=== PATIENT | female | born 1990 | race Caucasian/White ===

== ENCOUNTER 2017-02-24 11:59 | Emergency (ER) | payer MEDICAID ==
[2017-02-24 12:10] VITALS: BP 146/102
--- NOTE | 2017-02-24 12:30 | ER Document Report ---
ED General - General Chief Complaint: Vaginal Bleeding Stated Complaint: VAGINAL BLEEDING Time Seen by Provider: 02/24/17 12:18 Mode of Arrival: Ambulatory Information source: Patient Notes: 26-year-old female presents with complaints of vaginal bleeding. Patient notes she is having clots since last night. Patient's. Ended normally last week. She denies any fevers or chills TRAVEL OUTSIDE OF THE [place] IN LAST 30 DAYS: No - HPI Onset: Yesterday Onset/Duration: Sudden Quality of pain: No pain Severity: Mild Pain Level: Denies Associated symptoms: Other Exacerbated by: Denies Relieved by: Denies Similar symptoms previously: No Recently seen / treated by doctor: No - Related Data Allergies/Adverse Reactions: oxycodone Allergy (Verified 02/24/17 12:09) Past Medical History - Social History Smoking Status: Never Smoker Cigarette use (# per day): No Chew tobacco use (# tins/day): No Smoking Education Provided: No Family History: Reviewed & Not Pertinent Renal/ Medical History: Denies: Hx Peritoneal Dialysis Review of Systems - Review of Systems Notes: REVIEW OF SYSTEMS: CONSTITUTIONAL : Denies fever, chills, or sweats. Denies recent illness. EENT: Denies eye, ear, throat, or mouth pain or symptoms. Denies nasal or sinus congestion or discharge. Denies throat, tongue, or mouth swelling or difficulty swallowing. CARDIOVASCULAR: Denies chest pain. Denies palpitations or racing or irregular heart beat. Denies ankle edema. RESPIRATORY: Denies cough, cold, or chest congestion. Denies shortness of breath, difficulty breathing, or wheezing. GASTROINTESTINAL: Denies abdominal pain or distention. Denies nausea, vomiting , or diarrhea. Denies blood in vomitus, stools, or per rectum. Denies black, tarry stools. Denies constipation. GENITOURINARY: Denies difficulty urinating, painful urination, burning, frequency, blood in urine, or discharge. FEMALE GENITOURINARY: Admits to vaginal bleeding MUSCULOSKELETAL: Denies back or neck pain or stiffness. Denies joint pain or swelling. SKIN: Denies rash, lesions or sores. HEMATOLOGIC : Denies easy bruising or bleeding. LYMPHATIC: Denies swollen, enlarged glands. NEUROLOGICAL: Denies confusion or altered mental status. Denies passing out or loss of consciousness. Denies dizziness or lightheadedness. Denies headache. Denies weakness or paralysis or loss of use of either side. Denies problems with gait or speech. Denies sensory loss, numbness, or tingling. Denies seizures. PSYCHIATRIC: Denies anxiety or stress. Denies depression, suicidal ideation, or homicidal ideation. ALL OTHER SYSTEMS REVIEWED AND NEGATIVE. PHYSICAL EXAMINATION: GENERAL: Well-appearing, well-nourished and in no acute distress. HEAD: Atraumatic, normocephalic. EYES: Pupils equal round and reactive to light, extraocular movements intact, conjunctiva are normal. ENT: Nares patent, oropharynx clear without exudates. Moist mucous membranes. NECK: Normal range of motion, supple without lymphadenopathy LUNGS: Breath sounds clear to auscultation bilaterally and equal. No wheezes rales or rhonchi. HEART: Regular rate and rhythm without murmurs ABDOMEN: Soft, nontender, nondistended abdomen. No guarding, no rebound. No masses appreciated. Female : deferred Musculoskeletal: Normal range of motion, no pitting or edema. No cyanosis. NEUROLOGICAL: Cranial nerves grossly intact. Normal speech, normal gait. Normal sensory, motor exams PSYCH: Normal mood, normal affect. SKIN: Warm, Dry, normal turgor, no rashes or lesions noted. Dictation was performed using [employer] voice recognition software Physical Exam - Vital signs Vitals: Temp Pulse Resp BP Pulse Ox 98.5 F 81 16 146/102 H 98 02/24/17 12:09 02/24/17 12:09 02/24/17 12:09 02/24/17 12:09 02/24/17 12:09 Course - Re-evaluation Re-evalutation: 02/24/17 12:29 Labwork pending at this time otherwise patient looks extremely well is in no distress 02/24/17 14:25 Labwork notes no significant abnormality. Patient otherwise is in no distress. She will be discharged home with close follow-up at this time After performing a Medical Screening Examination, I estimate there is LOW risk for ACUTE APPENDICITIS, BOWEL OBSTRUCTION, ACUTE CHOLECYSTITIS, PERFORATED DIVERTICULITIS, INCARCERATED HERNIA, PANCREATITIS, PELVIC INFLAMMATORY DISEASE, PERFORATED ULCER, ECTOPIC , or TUBO-OVARIAN ABSCESS, thus I consider the discharge disposition reasonable. Also, there is no evidence or peritonitis , sepsis, or toxicity. I have reevaluated this patient multiple times and no significant life threatening changes are noted. The patient and I have discussed the diagnosis and risks, and we agree with discharging home with close follow-up with the understanding that symptoms and presentations can change. We also discussed returning to the Emergency Department immediately if new or worsening symptoms occur. We have discussed the symptoms which are most concerning (e.g., bloody stool, fever, changing or worsening pain, vomiting) that necessitate immediate return. - Vital Signs Vital signs: Temp Pulse Resp BP Pulse Ox 98.5 F 81 16 146/102 H 98 02/24/17 12:09 02/24/17 12:09 02/24/17 12:09 02/24/17 12:09 02/24/17 12:09 - Laboratory Result Diagrams: 02/24/17 12:58 02/24/17 12:58 Laboratory results interpreted by me: 02/24/17 12:54 Urine Blood SMALL H Discharge - Discharge Clinical Impression: Dysfunctional uterine bleeding Condition: Stable Disposition: HOME, SELF-CARE Instructions: Dysfunctional Uterine Bleeding ([facility]) Referrals: [facility] [Provider Group] - Follow up tomorrow
[2017-02-24 13:27] LABS: ABSOLUTE EOSINOPHILS # (AUTO) 0.1 10^3/uL (0.0-0.6); ABSOLUTE LYMPHOCYTES (AUTO) 1.6 10^3/uL (0.5-4.7); ABSOLUTE MONOCYTES (AUTO) 0.5 10^3/uL (0.1-1.4); ABSOLUTE NEUT (AUTO) 5.9 10^3/uL (1.7-8.2); BASOPHILS % (AUTO) 0.4 % (0-2); EOSINOPHILS % (AUTO) 1.3 % (0-6); HEMATOCRIT 41.1 % (36.0-47.0); HGB HCT DIFFERENCE 0.9; LYMPHOCYTES % (AUTO) 19.4 % (13-45); MEAN CORPUSCULAR HEMOGLOBIN 30.3 pg (27.0-33.4); MEAN CORPUSCULAR HGB CONC 34.2 g/dL (32.0-36.0); MEAN CORPUSCULAR VOLUME 89 fl (80-97); MONOCYTES % (AUTO) 6.3 % (3-13); RED BLOOD COUNT 4.64 10^6/uL (3.72-5.28); RED CELL DISTRIBUTION WIDTH 13.2 % (11.5-14.0); SEGMENTED NEUTROPHILS % (AUTO) 72.6 % (42-78); WHITE BLOOD COUNT 8.1 10^3/uL (4.0-10.5)
[2017-02-24 13:36] LABS: APPEARANCE,URINE CLEAR; BILIRUBIN,URINE NEGATIVE (NEGATIVE); GLUCOSE, URINE NEGATIVE (NEGATIVE); KETONES,URINE NEGATIVE (NEGATIVE); LEUKOCYTE ESTERASE,URINE NEGATIVE (NEGATIVE); NITRITE,URINE NEGATIVE (NEGATIVE); PROTEIN,URINE NEGATIVE (NEGATIVE); URINE SPECIFIC GRAVITY 1.009; UROBILINOGEN,URINE NEGATIVE mg/dL (<2.0)
[2017-02-24 13:43] LABS: ALANINE AMINOTRANSFERASE 31 U/L (9-52); ALBUMIN 4.5 g/dL (3.5-5.0); ALKALINE PHOSPHATASE 57 U/L (38-126); ANION GAP 10 (5-19); ASPARTATE AMINO TRANSFERASE 23 U/L (14-36); BILIRUBIN,DIRECT 0.3 mg/dL (0.0-0.4); BILIRUBIN,TOTAL 0.5 mg/dL (0.2-1.3); BLOOD UREA NITROGEN 10 mg/dL (7-20); CARBON DIOXIDE 26 mmol/L (22-30); CHLORIDE 105 mmol/L (98-107); CREATININE RESULT 0.61 mg/dL (0.52-1.25); GLUCOSE 94 mg/dL (75-110); POTASSIUM 4.4 mmol/L (3.6-5.0); SODIUM 140.8 mmol/L (137-145); TOTAL PROTEIN 7.5 g/dL (6.3-8.2)
== END 2017-02-24 14:29 | disposition home or self-care (01) ==
LOC: ER 11:59
DX: N93.8 Other specified abnormal uterine and vaginal bleeding (principal)
CPT/HCPCS: 36415; 80053; 81001; 84443; 84703; 85025; 99284

== ENCOUNTER 2017-06-01 14:11 | Emergency (ER) | payer MEDICAID ==
[2017-06-01 14:17] VITALS: BP 146/93
--- NOTE | 2017-06-01 15:02 | ER Document Report ---
HPI - HPI Patient complains to provider of: Lesion near vagina Pain Level: 0 Context: Patient is a 26-year-old female presents to the ED complaining of a bump in her vagina. She states that she is unable to see a patient able to feel it. Denies any tenderness, burning, pain. She states that she had an ex-boyfriend who she last had intercourse with over a year ago she thought had a history of herpes. She denies any previous outbreaks or previous diagnosis of herpes otherwise denies any vaginal pain, discharge, pelvic pain. - DERM Skin Color: Normal Past Medical History - Social History Smoking Status: Never Smoker Chew tobacco use (# tins/day): No Frequency of alcohol use: Rare Drug Abuse: None Family History: Reviewed & Not Pertinent Patient has suicidal ideation: No Patient has homicidal ideation: No Renal/ Medical History: Denies: Hx Peritoneal Dialysis Vertical Provider Document - CONSTITUTIONAL Agree With Documented VS: Yes Notes: PHYSICAL EXAM GENERAL: Alert, interacts well. ABDOMEN: Soft, nondistended, nontender. No guarding, rebound, or rigidity.. Bowel sounds present in all 4 quadrants. FEMALE : Normal external exam. No evidence of lesions, lacerations, bruising or vesicles. No evidence of vaginal discharge with odor. No evidence of lesions. PSYCH: Normal affect, normal mood. SKIN: Warm, dry, normal turgor. No rashes or lesions noted. - INFECTION CONTROL TRAVEL OUTSIDE OF THE [place] IN LAST 30 DAYS: No - RESPIRATORY O2 Sat by Pulse Oximetry: 100 Course - Re-evaluation Re-evalutation: 06/01/17 19:22 Normal physical exam benign history. Discussed with patient to follow-up with [facility] but there is no evidence of abscess, cellulitis, ingrown hair, vesicles or chancroid. Patient is stable for discharge home - Vital Signs Vital signs: Temp Pulse Resp BP Pulse Ox 97.9 F 67 14 146/93 H 100 06/01/17 14:15 06/01/17 14:15 06/01/17 14:15 06/01/17 14:15 06/01/17 14:15 Discharge - Discharge Clinical Impression: STD exposure Condition: Good Disposition: HOME, SELF-CARE Additional Instructions: Your complaint today is not consistent with a herpes outbreak Please follow up with your primary care doctor or OBGYN as needed Referrals: DONNA GEORGE MD [COMMUNITY BASED STAFF] - Follow up as needed MELY GUILLEN DO [PAGE MAKEUP SYSTEM OPERATOR] - Follow up as needed (OBGYN)
== END 2017-06-01 15:10 | disposition home or self-care (01) ==
LOC: ER 14:11
DX: Z20.2 Contact with and (suspected) exposure to infections with a predominantly sexual mode of transmission (principal)
CPT/HCPCS: 99283

== ENCOUNTER 2017-06-24 21:04 | Emergency (ER) | payer MEDICAID ==
[2017-06-24 21:38] VITALS: BP 135/86
[2017-06-24] MEDS ORDERED: ACETAMINOPHEN 325 MG TABLET PO ONE (21:41)
--- NOTE | 2017-06-25 00:08 | ER Document Report ---
HPI - HPI Patient complains to provider of: sore throat, rash Pain Level: 5 Context: Patient is a 26-year-old female comes emergency department for chief complaint of 3 days of sore throat. She also states she has a rash on her face she wants checked out. 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 She denies fever, cough, shortness of breath, headache. She is also states she missed her period and she is worried she is . She denies any daily medications or medical problems. - EENT EENT: REPORTS: Sore Throat Past Medical History - General Information source: Patient - Social History Smoking Status: Never Smoker Frequency of alcohol use: None Drug Abuse: None Lives with: Family Family History: Reviewed & Not Pertinent Patient has suicidal ideation: No Patient has homicidal ideation: No - Medical History Medical History: Negative Renal/ Medical History: Denies: Hx Peritoneal Dialysis Surgical Hx: Negative - Immunizations Hx Diphtheria, Pertussis, Tetanus Vaccination: Yes Vertical Provider Document - CONSTITUTIONAL General Appearance: WD/WN, No Apparent Distress - INFECTION CONTROL TRAVEL OUTSIDE OF THE [place] IN LAST 30 DAYS: No - HEENT HEENT: Atraumatic, Normocephalic. negative: Conjuctival Injection, Dental Injury, Normal ENT Exam - Patient has mild tonsillar hypertrophy with erythema and also erythema over the soft palate. No uvular edema or airway compromise. No evidence of abscess., Tympanic Membrane Red, Tympanic Membrane Bulging - NECK Neck: Other - Mild anterior cervical adenopathy bilaterally - RESPIRATORY Respiratory: Breath Sounds Normal, No Respiratory Distress O2 Sat by Pulse Oximetry: 99 - CARDIOVASCULAR Cardiovascular: Regular Rate, Regular Rhythm - GI/ABDOMEN Gastrointestinal: Abdomen Soft, Abdomen Non-Tender - MUSCULOSKELETAL/EXTREMETIES Musculoskeletal/Extremeties: MAEW, FROM, Non-Tender - NEURO Motor/Sensory: No Motor Deficit, No Sensory Deficit - DERM Integumentary: Rash - There is a small area on the left upper lip just above the vermilion border which has a irritated, erythematous, crusted appearance. No vesicles, bulla, induration, fluctuance, or pustules Course - Re-evaluation Re-evalutation: Rash is not itchy or painful. Examination is most suggestive of mild impetigo. Given Bactroban for this. Patient strep test is negative. No concerning abnormalities on examination suggesting abscess or other concerning pathology. Suspect this is viral. Given dexamethasone. Discussed follow-up instructions and return precautions. Patient states understanding and agreement. - Vital Signs Vital signs: Temp Pulse Resp BP Pulse Ox 98.6 F 86 18 135/86 H 99 06/24/17 21:31 06/24/17 21:31 06/24/17 21:31 06/24/17 21:31 06/24/17 21:31 Discharge - Discharge Clinical Impression: Skin infection Pharyngitis Qualifiers: Pharyngitis/tonsillitis etiology: unspecified etiology Qualified Code(s): J02.9 - Acute pharyngitis, unspecified Condition: Stable Disposition: HOME, SELF-CARE Additional Instructions: The rash on your face is suggestive of bacterial infection. Use the mupirocin ointment as prescribed. Your strep test is negative. This is most likely viral in nature. Your test is negative. Take ibuprofen or Tylenol for pain of your throat, drink plenty of fluids. You have been treated for throat inflammation. We have a culture growing in our lab. Follow-up with primary care. Return to emergency department for any concerning worsening symptoms including difficulty breathing, spiking fever, severe swelling or pain of the throat or neck, or any other concerning symptoms. Prescriptions: Mupirocin [Bactroban 2% Ointment 22 gm] 1 applic TP TID #1 tube Forms: Return to Work
[2017-06-25] MEDS ORDERED: DEXAMETHASONE SOD PHOS INJ 10 MG/1 ML VIAL IM ONE (00:50)
== END 2017-06-25 00:57 | disposition home or self-care (01) ==
LOC: ER 21:04
DX: L08.9 Local infection of the skin and subcutaneous tissue, unspecified (principal); J02.9 Acute pharyngitis, unspecified
CPT/HCPCS: 99283; 96372; 87070; 87880; 81025; J3490; J1100

== ENCOUNTER → 2017-06-27 | Outpatient (CLI) | payer MEDICAID ==
[2017-06-27 12:49] LABS: ABSOLUTE BASOPHILS # (AUTO) 0.1 10^3/uL (0.0-0.2); ABSOLUTE EOSINOPHILS # (AUTO) 0.1 10^3/uL (0.0-0.6); ABSOLUTE LYMPHOCYTES (AUTO) 1.9 10^3/uL (0.5-4.7); ABSOLUTE MONOCYTES (AUTO) 0.8 10^3/uL (0.1-1.4); BASOPHILS % (AUTO) 0.8 % (0-2); EOSINOPHILS % (AUTO) 1.4 % (0-6); HEMATOCRIT 39.7 % (36.0-47.0); HEMOGLOBIN 13.4 g/dL (12.0-15.5); HGB HCT DIFFERENCE 0.5; MEAN CORPUSCULAR HEMOGLOBIN 29.4 pg (27.0-33.4); MEAN CORPUSCULAR HGB CONC 33.8 g/dL (32.0-36.0); MEAN CORPUSCULAR VOLUME 87 fl (80-97); RED BLOOD COUNT 4.57 10^6/uL (3.72-5.28); RED CELL DISTRIBUTION WIDTH 14.2 % (11.5-14.0); SEGMENTED NEUTROPHILS % (AUTO) 58.8 % (42-78); WHITE BLOOD COUNT 6.9 10^3/uL (4.0-10.5)
== END ==
LOC: OD 11:55
PROVIDERS: ATTEND Pediatrics
DX: J02.9 Acute pharyngitis, unspecified (principal)
CPT/HCPCS: 36415; 85025; 86140; 86308

== ENCOUNTER 2017-06-29 10:18 | Emergency (ER) | payer MEDICAID ==
[2017-06-29 10:23] VITALS: BP 140/88
--- NOTE | 2017-06-29 10:40 | ER Document Report ---
ED General - General Chief Complaint: Swelling Stated Complaint: THROAT SWELLING/SKIN PROBLEM Time Seen by Provider: 06/29/17 10:35 Mode of Arrival: Ambulatory Information source: Patient TRAVEL OUTSIDE OF THE [place] IN LAST 30 DAYS: No - HPI Patient complains to provider of: sore throat; lesions on skin Onset: Other - Pt. states she has had ulcers around her nose and in the back of her throat for the past 8 days. States she wsa seen here for same a got a steroid shot - Related Data Allergies/Adverse Reactions: oxycodone Allergy (Verified 06/29/17 10:19) Home Medications: Current Home Medications Sertraline HCl [Zoloft] 200 mg PO DAILY 06/29/17 [History] Past Medical History - Social History Smoking Status: Never Smoker Chew tobacco use (# tins/day): No Frequency of alcohol use: Rare Drug Abuse: None Family History: Reviewed & Not Pertinent Patient has suicidal ideation: No Patient has homicidal ideation: No Renal/ Medical History: Denies: Hx Peritoneal Dialysis - Immunizations Hx Diphtheria, Pertussis, Tetanus Vaccination: Yes Review of Systems - Review of Systems Constitutional: No symptoms reported EENT: Throat pain Cardiovascular: No symptoms reported Respiratory: No symptoms reported Gastrointestinal: No symptoms reported Genitourinary: See HPI, Burning, Dysuria Skin: See HPI, Lesions -: Yes All other systems reviewed and negative Physical Exam - Vital signs Vitals: Temp Pulse Resp BP Pulse Ox 98.5 F 78 17 140/88 H 99 06/29/17 10:22 06/29/17 10:22 06/29/17 10:22 06/29/17 10:22 06/29/17 10:22 - General General appearance: Appears well In distress: None - HEENT Head: Normocephalic Pharynx: Other - there are scattered ulcers in the posterior pharynx with some surrounding erythema. There is no tonsillar hypertrophy - Respiratory Respiratory status: No respiratory distress Breath sounds: Normal - Cardiovascular Rhythm: Regular Heart sounds: Normal auscultation - Skin Character of irregularity: Other - there are scattered ulcers with some minimal surrounding erythema just superior to the upper lip and around the nares bilaterally. There is no ocular involvement Course - Vital Signs Vital signs: Temp Pulse Resp BP Pulse Ox 98.5 F 78 17 140/88 H 99 06/29/17 10:22 06/29/17 10:22 06/29/17 10:22 06/29/17 10:22 06/29/17 10:22
[2017-06-29] MEDS ORDERED: IBUPROFEN 800 MG TABLET PO ONE (10:58)
[2017-06-29 11:12] LABS: APPEARANCE,URINE CLOUDY; BILIRUBIN,URINE NEGATIVE (NEGATIVE); COLOR,URINE YELLOW; GLUCOSE, URINE NEGATIVE (NEGATIVE); KETONES,URINE NEGATIVE (NEGATIVE); LEUKOCYTE ESTERASE,URINE LARGE (NEGATIVE); NITRITE,URINE NEGATIVE (NEGATIVE); PROTEIN,URINE NEGATIVE (NEGATIVE); URINE SPECIFIC GRAVITY 1.013; UROBILINOGEN,URINE NEGATIVE mg/dL (<2.0)
== END 2017-06-29 11:37 | disposition home or self-care (01) ==
LOC: ER 10:18
DX: Z33.1 Pregnant state, incidental (principal); R22.1 Localized swelling, mass and lump, neck; L98.9 Disorder of the skin and subcutaneous tissue, unspecified; Z79.899 Other long term (current) drug therapy
CPT/HCPCS: 99283; 81025; 81001; J3490

== ENCOUNTER 2017-07-14 13:45 | Emergency (ER) | payer MEDICAID ==
[2017-07-14] MEDS ORDERED: MECLIZINE HCL 25 MG TABLET PO ONE (15:44)
[2017-07-14 15:50] LABS: AMORPHOUS SEDIMENT,URINE TRACE /HPF; APPEARANCE,URINE SLIGHTLY-CLOUDY; BILIRUBIN,URINE NEGATIVE (NEGATIVE); GLUCOSE, URINE NEGATIVE (NEGATIVE); KETONES,URINE NEGATIVE (NEGATIVE); LEUKOCYTE ESTERASE,URINE NEGATIVE (NEGATIVE); NITRITE,URINE NEGATIVE (NEGATIVE); PROTEIN,URINE NEGATIVE (NEGATIVE); URINE SPECIFIC GRAVITY 1.017; UROBILINOGEN,URINE NEGATIVE mg/dL (<2.0)
[2017-07-14 16:00] LABS: ABSOLUTE BASOPHILS # (AUTO) 0.1 10^3/uL (0.0-0.2); ABSOLUTE EOSINOPHILS # (AUTO) 0.2 10^3/uL (0.0-0.6); ABSOLUTE LYMPHOCYTES (AUTO) 2.1 10^3/uL (0.5-4.7); ABSOLUTE MONOCYTES (AUTO) 0.6 10^3/uL (0.1-1.4); ABSOLUTE NEUT (AUTO) 4.2 10^3/uL (1.7-8.2); BASOPHILS % (AUTO) 0.7 % (0-2); EOSINOPHILS % (AUTO) 3.1 % (0-6); HEMATOCRIT 42.4 % (36.0-47.0); HEMOGLOBIN 14.3 g/dL (12.0-15.5); HGB HCT DIFFERENCE 0.5; LYMPHOCYTES % (AUTO) 28.8 % (13-45); MEAN CORPUSCULAR HEMOGLOBIN 29.2 pg (27.0-33.4); MEAN CORPUSCULAR HGB CONC 33.9 g/dL (32.0-36.0); MEAN CORPUSCULAR VOLUME 86 fl (80-97); MONOCYTES % (AUTO) 8.3 % (3-13); RED BLOOD COUNT 4.91 10^6/uL (3.72-5.28); RED CELL DISTRIBUTION WIDTH 14.1 % (11.5-14.0); SEGMENTED NEUTROPHILS % (AUTO) 59.1 % (42-78); WHITE BLOOD COUNT 7.2 10^3/uL (4.0-10.5)
[2017-07-14 16:19] LABS: ALANINE AMINOTRANSFERASE 38 U/L (9-52); ALBUMIN 4.5 g/dL (3.5-5.0); ALKALINE PHOSPHATASE 58 U/L (38-126); ANION GAP 12 (5-19); ASPARTATE AMINO TRANSFERASE 26 U/L (14-36); BILIRUBIN,DIRECT 0.1 mg/dL (0.0-0.4); BILIRUBIN,TOTAL 0.2 mg/dL (0.2-1.3); BLOOD UREA NITROGEN 9 mg/dL (7-20); CALCIUM 9.9 mg/dL (8.4-10.2); CARBON DIOXIDE 30 mmol/L (22-30); CHLORIDE 104 mmol/L (98-107); CREATININE RESULT 0.54 mg/dL (0.52-1.25); GLUCOSE 96 mg/dL (75-110); POTASSIUM 4.4 mmol/L (3.6-5.0); SODIUM 145.8 mmol/L (137-145); TOTAL PROTEIN 7.1 g/dL (6.3-8.2)
[2017-07-14 16:36] LABS: FREE T3 4.34 pg/mL (2.77-5.27)
--- NOTE | 2017-07-14 16:48 | ER Document Report ---
ED General - General Chief Complaint: General Weakness Stated Complaint: SHAKY, WEAK FEELING Time Seen by Provider: 07/14/17 15:22 Mode of Arrival: Ambulatory Information source: Patient Notes: 26-year-old female presents with complaints of lightheadedness sensation and feeling like she did not pass out. Patient notes symptoms worsen when she stands up all of a sudden. She denies any chest pain shortness of breath difficulty breathing nausea vomiting or diarrhea TRAVEL OUTSIDE OF THE [place] IN LAST 30 DAYS: No - HPI Onset: Other - 3 4 day duration Onset/Duration: Intermittent Quality of pain: No pain Severity: Mild Pain Level: Denies Associated symptoms: Other - Lightheadedness dizziness Exacerbated by: Standing Relieved by: Denies Similar symptoms previously: No Recently seen / treated by doctor: No - Related Data Allergies/Adverse Reactions: oxycodone Allergy (Verified 07/14/17 13:47) Home Medications: Current Home Medications Thyroid,Pork [[facility] Thyroid] 30 mg PO DAILY 07/14/17 [History] Past Medical History - Social History Smoking Status: Never Smoker Cigarette use (# per day): No Chew tobacco use (# tins/day): No Smoking Education Provided: No Frequency of alcohol use: None Drug Abuse: None Family History: Reviewed & Not Pertinent Patient has suicidal ideation: No Patient has homicidal ideation: No Renal/ Medical History: Denies: Hx Peritoneal Dialysis Past Surgical History: Reports: Hx Thyroid Surgery - partial - Immunizations Hx Diphtheria, Pertussis, Tetanus Vaccination: Yes Review of Systems - Review of Systems Notes: REVIEW OF SYSTEMS: CONSTITUTIONAL : Denies fever, chills, or sweats. Denies recent illness. EENT: Denies eye, ear, throat, or mouth pain or symptoms. Denies nasal or sinus congestion or discharge. Denies throat, tongue, or mouth swelling or difficulty swallowing. CARDIOVASCULAR: Denies chest pain. Denies palpitations or racing or irregular heart beat. Denies ankle edema. RESPIRATORY: Denies cough, cold, or chest congestion. Denies shortness of breath, difficulty breathing, or wheezing. GASTROINTESTINAL: Denies abdominal pain or distention. Denies nausea, vomiting , or diarrhea. Denies blood in vomitus, stools, or per rectum. Denies black, tarry stools. Denies constipation. GENITOURINARY: Denies difficulty urinating, painful urination, burning, frequency, blood in urine, or discharge. FEMALE GENITOURINARY: Denies vaginal bleeding, heavy or abnormal periods, irregular periods. Denies vaginal discharge or odor. MUSCULOSKELETAL: Denies back or neck pain or stiffness. Denies joint pain or swelling. SKIN: Denies rash, lesions or sores. HEMATOLOGIC : Denies easy bruising or bleeding. LYMPHATIC: Denies swollen, enlarged glands. NEUROLOGICAL: Admits lightheadedness dizziness PSYCHIATRIC: Denies anxiety or stress. Denies depression, suicidal ideation, or homicidal ideation. ALL OTHER SYSTEMS REVIEWED AND NEGATIVE. PHYSICAL EXAMINATION: GENERAL: Well-appearing, well-nourished and in no acute distress. HEAD: Atraumatic, normocephalic. EYES: Pupils equal round and reactive to light, extraocular movements intact, conjunctiva are normal. ENT: Nares patent, oropharynx clear without exudates. Moist mucous membranes. NECK: Normal range of motion, supple without lymphadenopathy LUNGS: Breath sounds clear to auscultation bilaterally and equal. No wheezes rales or rhonchi. HEART: Regular rate and rhythm without murmurs ABDOMEN: Soft, nontender, nondistended abdomen. No guarding, no rebound. No masses appreciated. Female : deferred Musculoskeletal: Normal range of motion, no pitting or edema. No cyanosis. NEUROLOGICAL: Cranial nerves grossly intact. Normal speech, normal gait. Normal sensory, motor exams PSYCH: Normal mood, normal affect. SKIN: Warm, Dry, normal turgor, no rashes or lesions noted. Dictation was performed using [employer] voice recognition software Physical Exam - Vital signs Vitals: Temp Pulse Resp BP Pulse Ox 97.8 F 63 16 131/88 H 99 07/14/17 13:54 07/14/17 13:54 07/14/17 13:54 07/14/17 13:54 07/14/17 13:54 Course - Re-evaluation Re-evalutation: 07/14/17 19:43 Patient's lab work noted no significant abnormality, I discussed lab results. She does admit to orthostatic symptoms. I did give her Antivert and her symptoms did improve significantly. Patient overall looks well is in no distress. I will discharge her at this time with the understanding that she must return immediately if there are any other concerns After performing a Medical Screening Examination, I estimate there is LOW risk for INTRACRANIAL HEMORRHAGE, ISCHEMIC CVA, MALIGNANT DYSRHYTHMIA, ACUTE CORONARY SYNDROME, MENINGITIS, PULMONARY EMBOLISM, or SEPSIS thus I consider the discharge disposition reasonable. I have reevaluated this patient multiple times and no significant life threatening changes are noted. The patient and I have discussed the diagnosis and risks, and we agree with discharging home with close follow-up with the understanding that symptoms and presentations can change. We also discussed returning to the Emergency Department immediately if new or worsening symptoms occur. We have discussed the symptoms which are most concerning (e.g., changing or worsening pain, weakness, vomiting, fever) that necessitate immediate return. - Vital Signs Vital signs: Temp Pulse Resp BP Pulse Ox 98.3 F 68 18 149/83 H 100 07/14/17 16:56 07/14/17 16:56 07/14/17 16:56 07/14/17 16:56 07/14/17 16:56 - Laboratory Result Diagrams: 07/14/17 15:52 07/14/17 15:52 Laboratory results interpreted by me: 07/14/17 07/14/17 07/14/17 14:00 15:52 15:52 RDW 14.1 H Sodium 145.8 H TSH Urine Ascorbic Acid 40 H 07/14/17 15:52 RDW Sodium TSH 0.40 L Urine Ascorbic Acid Discharge - Discharge Clinical Impression: Light-headed feeling, Pre-syncope Condition: Stable Disposition: HOME, SELF-CARE Instructions: Orthostatic Hypotension ([facility]) Additional Instructions: Follow up with your physician tomorrow for further care or return to the ED IMMEDIATELY if symptoms worsen or new concerns occur. If you cannot afford to follow up with your primary care physician a list of low cost clinics have been provided at the end of your discharge papers as well.
[2017-07-14 16:50] LABS: THYROID STIMULATING HORMONE 0.4 uIU/mL (0.47-4.68)
[2017-07-14 16:57] VITALS: BP 149/83
== END 2017-07-14 17:05 | disposition home or self-care (01) ==
LOC: ER 13:45
DX: R55 Syncope and collapse (principal); R42 Dizziness and giddiness; R53.1 Weakness; Z88.6 Allergy status to analgesic agent
CPT/HCPCS: 36415; 80053; 81001; 81025; 84439; 84443; 84481; 85025; 99284

== ENCOUNTER 2017-08-09 10:41 | Emergency (ER) | payer MEDICAID ==
[2017-08-09 10:48] VITALS: BP 125/81
--- NOTE | 2017-08-09 10:55 | ER Document Report ---
ED General - General Mode of Arrival: Ambulatory Information source: Patient TRAVEL OUTSIDE OF THE [place] IN LAST 30 DAYS: No - General Chief Complaint: Other Stated Complaint: MEDICATION CONCERN Time Seen by Provider: 08/09/17 10:53 Notes: Patient is 26-year-old female presentING to the emergency department today wondering about the safety of medications that she is currently prescribed because she is . Patient states she has taken a home test last 3 days which come back positive. Patient is on sertraline and armour thyroid medication. Patient has no symptoms at this time. (ALISHA EISENBERG) - Related Data Allergies/Adverse Reactions: oxycodone Allergy (Verified 07/14/17 13:47) Past Medical History - General Information source: Patient - Social History Smoking Status: Never Smoker Cigarette use (# per day): No Chew tobacco use (# tins/day): No Frequency of alcohol use: Social Drug Abuse: None Lives with: Spouse/Significant other Family History: Reviewed & Not Pertinent Patient has suicidal ideation: No Patient has homicidal ideation: No Past Surgical History: Reports: Hx Thyroid Surgery - partial - Immunizations Hx Diphtheria, Pertussis, Tetanus Vaccination: Yes Review of Systems - Review of Systems Constitutional: No symptoms reported EENT: No symptoms reported Cardiovascular: No symptoms reported Respiratory: No symptoms reported Gastrointestinal: No symptoms reported Genitourinary: No symptoms reported Female Genitourinary: See HPI, Musculoskeletal: No symptoms reported Skin: No symptoms reported Hematologic/Lymphatic: No symptoms reported Neurological/Psychological: No symptoms reported -: Yes All other systems reviewed and negative Physical Exam - General General appearance: Appears well, Alert - HEENT Head: Normocephalic Eyes: Normal Conjunctiva: Normal - Respiratory Respiratory status: No respiratory distress Chest status: Nontender Breath sounds: Normal - Cardiovascular Rhythm: Regular Heart sounds: Normal auscultation Murmur: No - Abdominal Inspection: Normal Distension: No distension - Extremities General upper extremity: Normal inspection, Normal ROM. No: Edema General lower extremity: Normal inspection, Normal ROM. No: Edema - Neurological Neuro grossly intact: Yes Cognition: Normal Orientation: AAOx4 - Psychological Associated symptoms: Normal affect, Normal mood - Skin Skin Temperature: Warm Skin Moisture: Dry Skin Color: Normal - Vital signs Vitals: Temp Pulse Resp BP Pulse Ox 97.6 F 74 12 125/81 100 08/09/17 10:47 08/09/17 10:47 08/09/17 10:47 08/09/17 10:47 08/09/17 10:47 - Vital Signs Vital signs: Temp Pulse Resp BP Pulse Ox 97.6 F 74 12 125/81 100 08/09/17 10:47 08/09/17 10:47 08/09/17 10:47 08/09/17 10:47 08/09/17 10:47 - Laboratory Laboratory results interpreted by me: 08/09/17 11:00 Urine HCG, Qual POSITIVE H Discharge - Discharge Clinical Impression: Condition: Good Disposition: HOME, SELF-CARE Additional Instructions: Return for any problem or concern. Follow-up with an [facility]. Scribe Documentation - Scribe Written by Vijay:: Vijay Nunez, 08/09/2017 [id number] acting as scribe for :: Dennis
== END 2017-08-09 11:47 | disposition home or self-care (01) ==
LOC: ER 10:41
DX: Z33.1 Pregnant state, incidental (principal); Z79.899 Other long term (current) drug therapy
CPT/HCPCS: 81025; 99282

== ENCOUNTER 2017-08-25 11:48 | Emergency (ER) | payer MEDICAID ==
[2017-08-25 12:06] VITALS: BP 120/74
[2017-08-25] MEDS ORDERED: METOCLOPRAMIDE HCL INJ/PF 10 MG/2 ML SDV IV ONE (13:29)
[2017-08-25] MEDS ORDERED: NORMAL SALINE 1000 ML 1,000 ML IV ONE (13:29)
--- NOTE | 2017-08-25 13:30 | ER Document Report ---
ED Medical Screen (RME) - General Chief Complaint: Nausea/Vomiting/Diarrhea Stated Complaint: NAUSEA,VOMITING Time Seen by Provider: 08/25/17 13:29 Mode of Arrival: Ambulatory Information source: Patient Notes: Patient reports that this is "the worst ever felt". She states she was incontinent of stool at home earlier. She also states she has nausea but no vomiting. She states she believes she is somewhere between 5 and 8 weeks . TRAVEL OUTSIDE OF THE [place] IN LAST 30 DAYS: No - Related Data Allergies/Adverse Reactions: oxycodone Allergy (Verified 08/25/17 11:51) Past Medical History - Social History Chew tobacco use (# tins/day): No Frequency of alcohol use: None Drug Abuse: None Renal/ Medical History: Denies: Hx Peritoneal Dialysis Past Surgical History: Reports: Hx Thyroid Surgery - partial - Immunizations Hx Diphtheria, Pertussis, Tetanus Vaccination: Yes Physical Exam - Vital signs Vitals: Temp Pulse Resp BP Pulse Ox 98.3 F 113 H 20 120/74 100 08/25/17 12:04 08/25/17 12:04 08/25/17 12:04 08/25/17 12:04 08/25/17 12:04 Course - Vital Signs Vital signs: Temp Pulse Resp BP Pulse Ox 98.3 F 113 H 20 120/74 100 08/25/17 12:04 08/25/17 12:04 08/25/17 12:04 08/25/17 12:04 08/25/17 12:04
[2017-08-25 15:07] LABS: ABSOLUTE BASOPHILS # (AUTO) 0.1 10^3/uL (0.0-0.2); ABSOLUTE EOSINOPHILS # (AUTO) 0.1 10^3/uL (0.0-0.6); ABSOLUTE LYMPHOCYTES (AUTO) 1.3 10^3/uL (0.5-4.7); ABSOLUTE MONOCYTES (AUTO) 0.7 10^3/uL (0.1-1.4); ABSOLUTE NEUT (AUTO) 12.6 10^3/uL (1.7-8.2); BASOPHILS % (AUTO) 0.6 % (0-2); EOSINOPHILS % (AUTO) 0.6 % (0-6); HEMATOCRIT 43.4 % (36.0-47.0); HEMOGLOBIN 14.6 g/dL (12.0-15.5); LYMPHOCYTES % (AUTO) 8.9 % (13-45); MEAN CORPUSCULAR HEMOGLOBIN 29.6 pg (27.0-33.4); MEAN CORPUSCULAR HGB CONC 33.7 g/dL (32.0-36.0); MEAN CORPUSCULAR VOLUME 88 fl (80-97); PLATELET COUNT 307 10^3/uL (150-450); RED BLOOD COUNT 4.95 10^6/uL (3.72-5.28); RED CELL DISTRIBUTION WIDTH 14.5 % (11.5-14.0); SEGMENTED NEUTROPHILS % (AUTO) 84.9 % (42-78); TOTAL CELLS COUNTED % (AUTO) 100 %; WHITE BLOOD COUNT 14.8 10^3/uL (4.0-10.5)
[2017-08-25 15:21] LABS: AMORPHOUS SEDIMENT,URINE TRACE /HPF; APPEARANCE,URINE CLOUDY; BILIRUBIN,URINE NEGATIVE (NEGATIVE); CALCIUM OXALATE CRYSTALS,URINE MODERATE /HPF; COLOR,URINE YELLOW; GLUCOSE, URINE NEGATIVE (NEGATIVE); KETONES,URINE TRACE mg/dL (NEGATIVE); LEUKOCYTE ESTERASE,URINE NEGATIVE (NEGATIVE); NITRITE,URINE NEGATIVE (NEGATIVE); PROTEIN,URINE NEGATIVE (NEGATIVE); URINE SPECIFIC GRAVITY 1.025; UROBILINOGEN,URINE NEGATIVE mg/dL (<2.0)
== END 2017-08-25 15:29 | disposition left against medical advice (07) ==
LOC: ER 11:48
DX: Z53.21 Procedure and treatment not carried out due to patient leaving prior to being seen by health care provider (principal); F41.9 Anxiety disorder, unspecified; R11.2 Nausea with vomiting, unspecified; R19.7 Diarrhea, unspecified
CPT/HCPCS: 99283; 96361; 96374; 36415; 85025; 81001; J2765; J7030

== ENCOUNTER 2017-10-15 19:32 | Emergency (ER) | payer MEDICAID, OTHER ==
[2017-10-15] MEDS ORDERED: TETRACAINE HCL 0.5% OPH SOLN 2 ML OD ONE (20:34)
[2017-10-15] MEDS ORDERED: ERYTHROMYCIN 0.5% OPH OINTMENT 3.5 GM (ER DISP) OD PRN (21:26)
--- NOTE | 2017-10-15 21:27 | ER Document Report ---
HPI - HPI Patient complains to provider of: Foreign body in the eye Onset: This afternoon Onset/Duration: Sudden Quality of pain: Burning Pain Level: 5 Context: Patient states that she was playing with a dog while lying on the floor and got something in her eye. Patient denies any use of contact lenses. Patient denies any change in vision. Patient does complain of foreign body sensation to her eye. Exacerbated by: Denies Relieved by: Denies Similar symptoms previously: No Recently seen / treated by doctor: No - ROS ROS below otherwise negative: Yes Systems Reviewed and Negative: Yes All other systems reviewed and negative - CONSTITUTIONAL Constitutional: DENIES: Fever, Chills - EENT EENT: REPORTS: Eye problems. DENIES: Sore Throat, Ear Pain - REPRODUCTIVE Reproductive: REPORTS: : Past Medical History - General Information source: Patient - Social History Smoking Status: Never Smoker Chew tobacco use (# tins/day): No Frequency of alcohol use: None Drug Abuse: None Occupation: None Lives with: Family Family History: Reviewed & Not Pertinent Patient has suicidal ideation: No Patient has homicidal ideation: No Endocrine Medical History: Reports: Hx Hypothyroidism Renal/ Medical History: Denies: Hx Peritoneal Dialysis Psychiatric Medical History: Reports: Hx Anxiety, Hx Depression Past Surgical History: Reports: Hx Orthopedic Surgery, Hx Thyroid Surgery - partial - Immunizations Hx Diphtheria, Pertussis, Tetanus Vaccination: Yes Vertical Provider Document - CONSTITUTIONAL Agree With Documented VS: Yes Exam Limitations: No Limitations General Appearance: WD/WN, No Apparent Distress - INFECTION CONTROL TRAVEL OUTSIDE OF THE [place] IN LAST 30 DAYS: No - HEENT HEENT: Atraumatic, Normocephalic Notes: Injection to sclera of right eye with tearing. Visible foreign body to cornea of right eye. Patient with fluorescein uptake to right eye. No corneal ulcer. - NECK Neck: Normal Inspection - RESPIRATORY Respiratory: No Respiratory Distress - MUSCULOSKELETAL/EXTREMETIES Musculoskeletal/Extremeties: NARAYAN DIOP - NEURO Level of Consciousness: Awake, Alert, Appropriate Motor/Sensory: No Motor Deficit - DERM Integumentary: Warm, Dry, No Rash Course - Re-evaluation Re-evalutation: 10/15/17 21:25 After eye was anesthetized with tetracaine, foreign body was gently removed with a cotton tipped swab. Patient tolerated well. - Vital Signs Vital signs: Temp Pulse Resp BP Pulse Ox 98.0 F 104 H 16 132/88 H 100 10/15/17 20:06 10/15/17 20:06 10/15/17 20:06 10/15/17 20:06 10/15/17 20:06 Discharge - Discharge Clinical Impression: Corneal foreign body Qualifiers: Encounter type: initial encounter Laterality: right Qualified Code(s): T15.01XA - Foreign body in cornea, right eye, initial encounter Corneal abrasion Qualifiers: Encounter type: initial encounter Laterality: right Qualified Code(s): S05.01XA - Injury of conjunctiva and corneal abrasion without foreign body, right eye, initial encounter Condition: Stable Disposition: HOME, SELF-CARE Instructions: Corneal Abrasion ([facility]), Corneal Foreign Body ([facility]) Additional Instructions: Return immediately for any new or worsening symptoms Followup with your primary care provider, call tomorrow to make a followup appointment Instill erythromycin ointment 1 inch to right eye 4 times a day for the next 5 days. Follow-up with punch molder for any continued problems Referrals: [facility] [Provider Group] - Follow up as needed [facility] [Provider Group] - Follow up as needed
[2017-10-15 21:51] VITALS: BP 134/75
== END 2017-10-15 21:50 | disposition home or self-care (01) ==
LOC: ER 19:32
DX: S05.01XA Injury of conjunctiva and corneal abrasion without foreign body, right eye, initial encounter (principal); X58.XXXA Exposure to other specified factors, initial encounter; Y93.89 Activity, other specified
CPT/HCPCS: 99283